=== PATIENT | female | born 1980 | race Caucasian/White ===

== ENCOUNTER 2023-04-16 18:28 | Emergency (ER) | payer BC ==
[~2023-04-16] VITALS: Ht 167.6 cm; Wt 112.9 kg
[2023-04-16 19:07] VITALS: BP 128/73; PULSE 96; RESP 20; TEMP 98.3; O2SAT 97
[2023-04-16] MEDS ORDERED: KETOROLAC 30 MG/ML VIAL IVP ONE (20:10)
[2023-04-16] MEDS ORDERED: ACETAMINOPHEN EXTRA STRENGTH 500 MG TAB PO ONE (20:10)
[2023-04-16 20:30] LABS: BASOPHILS # (AUTO) 0.1 K/uL (0.00-0.22); BASOPHILS % (AUTO) 1.2 % (0.0-2.0); EOSINOPHILS # (AUTO) 0.2 K/uL (0-0.4); EOSINOPHILS % (AUTO) 2.5 % (0.0-4.0); HEMATOCRIT 27.3 % (36-48); HEMOGLOBIN 8.3 g/dL (12.0-16.0); LYMPHOCYTES % (AUTO) 31.3 % (20.5-51.1); MEAN CORPUSCULAR HEMOGLOBIN 20 pg (27-31); MEAN CORPUSCULAR HGB CONC 31 g/dL (33-37); MEAN CORPUSCULAR VOLUME 65.7 fL (80-94); MONOCYTES # (AUTO) 0.6 K/uL (0.8-1.0); MONOCYTES % (AUTO) 6.6 % (1.7-9.3); NEUTROPHILS # (AUTO) 5.6 K/uL (1.8-7.7); NEUTROPHILS % (AUTO) 58.4 % (42.2-75.2); PLATELET COUNT (AUTO) 377 K/uL (140-450); RED BLOOD CELL COUNT(AUTO) 4.15 MIL/uL (4.20-5.40); RED CELL DISTRIBUTION WIDTH 18.7 % (11.6-13.7); WHITE BLOOD COUNT (AUTO) 9.6 K/uL (4.8-10.8)
[2023-04-16 20:42] LABS: APPEARANCE,URINE HAZY (CLEAR); BILIRUBIN,URINE NEGATIVE (NEGATIVE); BLOOD, URINE 3+ (NEGATIVE); COLOR,URINE RED (YELLOW); LEUKOCYTE ESTERASE ,URINE TRACE (NEGATIVE); NITRITE, URINE POSITIVE (NEGATIVE); PH,URINE 5.5 (5.0-9.0); PROTEIN,URINE 3+ (NEGATIVE); UGLUCOSE NEGATIVE (NEGATIVE)
[2023-04-16 20:46] LABS: ANION GAP 9.6 (8-16); CALCIUM 8.5 mg/dL (8.5-10.1); CARBON DIOXIDE 27.1 mmol/L (21-32); CREATININE 0.8 mg/dL (0.6-1.3); POTASSIUM 3.7 mmol/L (3.5-5.1); TOTAL BILIRUBIN 0.2 mg/dL (0.0-1.0); TOTAL PROTEIN, SERUM 6.8 g/dL (6.4-8.2)
[2023-04-16 20:48] LABS: BACTERIA,URINE 2+ /HPF (None Seen); MUCUS,URINE 1+ /LPF (None Seen); RBC,URINE TOO NUMEROUS TO COUN /HPF (0-5); SQUAMOUS EPITHELIAL CELL,UR 4-10 (MOD) /LPF (0-3 (FEW)); TRICHOMONAS,URINE None Seen /HPF (None Seen); YEAST,URINE None Seen /HPF (None Seen)
[2023-04-16 21:11] VITALS: BP 124/64; PULSE 90; RESP 20; TEMP 98.3; O2SAT 98
[2023-04-17] MEDS ORDERED: ONDA-188 PO (12:26)
[2023-04-17] MEDS ORDERED: NITR100C7 PO (12:26)
[2023-04-17] MEDS ORDERED: IBUP-1842 PO (12:26)
[2023-04-17] MEDS ORDERED: MEDR10TA PO (12:27)
== END 2023-04-16 21:11 | disposition left against medical advice (07) ==
LOC: MED 18:28
DX: N93.9 Abnormal uterine and vaginal bleeding, unspecified (principal); D64.9 Anemia, unspecified; R55 Syncope and collapse; Z98.890 Other specified postprocedural states; Z79.899 Other long term (current) drug therapy; Z79.2 Long term (current) use of antibiotics; Z79.1 Long term (current) use of non-steroidal anti-inflammatories (NSAID)
CPT/HCPCS: 36415; 80053; 81001; 81025; 83690; 85025; 87086; 96374; 99283; J1885

== ENCOUNTER 2023-04-17 09:30 | Emergency (ER) | payer BC ==
[~2023-04-17] VITALS: Ht 165.1 cm; Wt 112.5 kg
[2023-04-17 09:46] VITALS: BP 133/63; PULSE 94; RESP 18; TEMP 97.5; O2SAT 99
[2023-04-17] MEDS ORDERED: HYDROcodone/APAP 5/325 MG 1 TAB TAB PO ONE (10:40)
[2023-04-17 11:38] LABS: BASOPHILS # (AUTO) 0.1 K/uL (0.00-0.22); BASOPHILS % (AUTO) 0.9 % (0.0-2.0); EOSINOPHILS # (AUTO) 0.2 K/uL (0-0.4); EOSINOPHILS % (AUTO) 2.2 % (0.0-4.0); HEMATOCRIT 28.2 % (36-48); HEMOGLOBIN 8.6 g/dL (12.0-16.0); LYMPHOCYTES % (AUTO) 24.7 % (20.5-51.1); MEAN CORPUSCULAR HEMOGLOBIN 20 pg (27-31); MEAN CORPUSCULAR HGB CONC 30 g/dL (33-37); MEAN CORPUSCULAR VOLUME 65.6 fL (80-94); MONOCYTES # (AUTO) 0.5 K/uL (0.8-1.0); MONOCYTES % (AUTO) 5.7 % (1.7-9.3); NEUTROPHILS # (AUTO) 5.5 K/uL (1.8-7.7); NEUTROPHILS % (AUTO) 66.5 % (42.2-75.2); PLATELET COUNT (AUTO) 384 K/uL (140-450); RED CELL DISTRIBUTION WIDTH 18.8 % (11.6-13.7); WHITE BLOOD COUNT (AUTO) 8.3 K/uL (4.8-10.8)
[2023-04-17 11:55] LABS: INR 0.95 (0.8-1.2); PARTIAL THROMBOPLASTIN TIME 25.9 secs (22-35.6)
[2023-04-17 11:58] LABS: ALBUMIN 3.2 g/dL (3.4-5.0); ANION GAP 10.6 (8-16); CALCIUM 8.7 mg/dL (8.5-10.1); CARBON DIOXIDE 27.6 mmol/L (21-32); CREATININE 0.8 mg/dL (0.6-1.3); POTASSIUM 4.2 mmol/L (3.5-5.1); TOTAL BILIRUBIN 0.3 mg/dL (0.0-1.0); TOTAL PROTEIN, SERUM 7.2 g/dL (6.4-8.2)
[2023-04-17] MEDS ORDERED: ONDA-188 PO (12:26)
[2023-04-17] MEDS ORDERED: NITR100C7 PO (12:26)
[2023-04-17] MEDS ORDERED: IBUP-1842 PO (12:26)
[2023-04-17] MEDS ORDERED: MEDR10TA PO (12:27)
[2023-04-17 12:47] VITALS: O2SAT 99
== END 2023-04-17 12:35 | disposition home or self-care (01) ==
LOC: MED 09:30
DX: N93.8 Other specified abnormal uterine and vaginal bleeding (principal); N83.202 Unspecified ovarian cyst, left side; D25.9 Leiomyoma of uterus, unspecified; Z79.899 Other long term (current) drug therapy; Z79.1 Long term (current) use of non-steroidal anti-inflammatories (NSAID); Z79.2 Long term (current) use of antibiotics
CPT/HCPCS: 36415; 76856; 80053; 81002; 81025; 85025; 85610; 85730; 86900; 86901; 99284